=== PATIENT | female | born 1955 | race African-American/Black ===

== ENCOUNTER → 2018-07-02 | Outpatient (CLI) | payer OTHER | LOC: MHCPAIN 12:50 | DX: G89.29 Other chronic pain (principal); M47.817 Spondylosis without myelopathy or radiculopathy, lumbosacral region; M54.16 Radiculopathy, lumbar region; M53.3 Sacrococcygeal disorders, not elsewhere classified | CPT/HCPCS: G0463 ==

== ENCOUNTER → 2018-07-10 | Outpatient (CLI) | payer OTHER | LOC: MHCPAIN 09:38 | DX: G57.11 Meralgia paresthetica, right lower limb (principal) | CPT/HCPCS: J1040 ==

== ENCOUNTER → 2018-08-07 | Outpatient (CLI) | payer OTHER | LOC: MHCPAIN 09:21 | DX: G89.29 Other chronic pain (principal); M47.817 Spondylosis without myelopathy or radiculopathy, lumbosacral region; M53.3 Sacrococcygeal disorders, not elsewhere classified | CPT/HCPCS: G0463 ==

== ENCOUNTER → 2018-09-06 | Outpatient (RCR) | payer OTHER | END | disposition home or self-care (01) | LOC: WSC → WSPT 07-03 10:45 → WSC 07-05 13:45 → WSPT 07-31 11:30 → WSC 08-21 15:45 | DX: M47.816 Spondylosis without myelopathy or radiculopathy, lumbar region (principal); M48.061 Spinal stenosis, lumbar region without neurogenic claudication; G89.29 Other chronic pain ==

== ENCOUNTER 2018-09-27 11:30 | Outpatient (RCR) | payer OTHER | END 2018-10-03 10:15 | disposition home or self-care (01) | LOC: WSC 11:30 | DX: G89.29 Other chronic pain (principal); M54.5 Low back pain ==

== ENCOUNTER → 2018-10-30 | Outpatient (CLI) | payer OTHER | LOC: MHCPAIN 09:42 | DX: G89.29 Other chronic pain (principal); M47.817 Spondylosis without myelopathy or radiculopathy, lumbosacral region; M53.3 Sacrococcygeal disorders, not elsewhere classified | CPT/HCPCS: G0463 ==

== ENCOUNTER 2019-12-04 08:09 | Day surgery (SDC) | payer OTHER ==
[2019-12-04] VITALS (11 sets, daily range): BP systolic 105–137; BP diastolic 58–87; PULSE 16–98; TEMP 97.6
[~2019-12-04] VITALS: Ht 170.2 cm; Wt 164.7 kg
[2019-12-04] MEDS ORDERED: COUMADIN 77.5 MG/TAB PO (08:54)
[2019-12-04] MEDS ORDERED: MICARDIS80 MG PO (08:55)
[2019-12-04] MEDS ORDERED: NORVASC 10MG10 MG PO (08:56)
[2019-12-04] MEDS ORDERED: LIPITOR 10MG10 MG PO (08:56)
[2019-12-04] MEDS ORDERED: HCTZ 25MG TAB25 MG PO (08:56)
[2019-12-04] MEDS ORDERED: FLONASEALLERGY NS (08:57)
[2019-12-04] MEDS ORDERED: ZYRTEC 10MG10 MG PO (08:57)
[2019-12-04] MEDS ORDERED: MASON NATURAL2000 IU PO (08:57)
[2019-12-04] MEDS ORDERED: CYMBALTA 30MG30 MG PO (08:58)
[2019-12-04] MEDS ORDERED: TYLENOL 500MG500 MG PO (08:58)
[2019-12-04] MEDS ORDERED: SALONPAS1 EACH TP (08:58)
[2019-12-04] MEDS ORDERED: ROBAXIN 75750 MG/TAB PO (08:58)
[2019-12-04 08:59] LABS: CALCIUM 9.1 mg/dL (8.4-10.2); CREATININE, serum 0.81 (0.52-1.25); HEMOGLOBIN 11.5 g/dl (12.5-16.0); MEAN CELL VOLUME 93 fl (80.0-100.0); MEAN CORPUSCULAR HEMOGLOBIN 30 pg (27.0-31.0); MEAN CORPUSCULAR HGB CONC 32 g/dl (33.0-37.0); PLATELET COUNT 250 K/mm3 (130-400); POTASSIUM 3.6 mmol/L (3.4-5.0); RED BLOOD COUNT 3.89 M/mm3 (4.10-5.30); REDCELL DISTRIBUTION WIDTH-CV 13.6 % (11.5-14.5)
[2019-12-04] MEDS ORDERED: COLACE 100100 MG/CAP PO (08:59)
[2019-12-04 09:02] LABS: HEMATOCRIT 36.3 % (37.0-47.0)
[2019-12-04 09:03] LABS: INR 1.5 (0.8-3.0); PROTHROMBIN TIME 16.4 SECONDS (9.7-12.8)
[2019-12-04 09:06] LABS: PARTIAL THROMBOPLASTIN TIME 34.3 SECONDS (26.0-37.0)
--- NOTE | 2019-12-04 10:03 | NUR ---
SEE MERGE DOCUMENTATION FOR MEDICATION ADMINISTRATION AND INTRA/POST PROCEDURE SEDATION ASSESSMENTS.
--- NOTE | 2019-12-04 11:45 | NUR ---
Rt maddison venous puncture site remains soft to palpation, dressing C/D/I. Pt remains free of complaints, denies needs at this time. She has spoken by phone with her . Call light in reach.
--- NOTE | 2019-12-04 13:05 | NUR ---
Additional 3ml released from rt TR band. Pt tolerating well, no c/o numbness or tingeling, pains. Assisted up to toilet with steady gait. Changing positions slowly to avoid spasming of back. Now sitting on edge of bed eating lunch.
--- NOTE | 2019-12-04 14:40 | NUR ---
Pt assisted out of EU by wheelchair, and into 's car. DC instructions reviewed and pt and express understanding. Bandaid, 2x2 and coban wrap in place to rt wrist- site remains soft to palpation, dressing C/D/I. Dressing to rt groin was changed due to small amount of blood on gauze. Rt groin soft to palpation, 2x2 placed and covered with tegaderm. INT DC'd with catheter intact. Pt ate meal tray prior to discharge.
== END 2019-12-04 14:40 | disposition home or self-care (01) ==
LOC: COL.CAR 08:09
PROVIDERS: Internal Medicine Cardiovascular Disease
DX: R07.89 Other chest pain (principal); I10 Essential (primary) hypertension; E78.5 Hyperlipidemia, unspecified; I34.0 Nonrheumatic mitral (valve) insufficiency; R94.39 Abnormal result of other cardiovascular function study; Z86.718 Personal history of other venous thrombosis and embolism; Z90.710 Acquired absence of both cervix and uterus; Z96.652 Presence of left artificial knee joint; Z79.82 Long term (current) use of aspirin; Z79.51 Long term (current) use of inhaled steroids; Z79.01 Long term (current) use of anticoagulants; Z82.3 Family history of stroke; Z82.5 Family history of asthma and other chronic lower respiratory diseases; Z83.3 Family history of diabetes mellitus
CPT/HCPCS: C1769; C1894; J1644; J2250; J3010

== ENCOUNTER 2021-01-28 09:00 | Outpatient (RCR) | payer MEDICARE, OTHER ==
[~2021-01-28 09:00] MED LIST: COLACE 100100 MG/CAP PO; COUMADIN 77.5 MG/TAB PO; CYMBALTA 30MG30 MG PO; FLONASEALLERGY NS; HCTZ 25MG TAB25 MG PO; LIPITOR 10MG10 MG PO; MASON NATURAL2000 IU PO; MICARDIS80 MG PO; NORVASC 10MG10 MG PO; ROBAXIN 75750 MG/TAB PO; SALONPAS1 EACH TP; TYLENOL 500MG500 MG PO; ZYRTEC 10MG10 MG PO
== END 2021-02-01 | disposition home or self-care (01) ==
LOC: WSPT
DX: M54.5 Low back pain (principal)

== ENCOUNTER 2021-02-04 09:00 | Outpatient (RCR) | payer MEDICARE, OTHER | END 2021-05-03 | disposition home or self-care (01) | LOC: WSPT | DX: M54.50 Low back pain, unspecified (principal) ==

== ENCOUNTER → 2023-01-12 | Outpatient (RCR) | payer MEDICARE, OTHER | END | disposition home or self-care (01) | LOC: WSPT | DX: M25.552 Pain in left hip (principal); M54.50 Low back pain, unspecified ==

== ENCOUNTER 2023-02-09 09:45 | Outpatient (RCR) | payer MEDICARE, OTHER | END 2023-02-11 | disposition home or self-care (01) | LOC: WSPT | DX: M54.50 Low back pain, unspecified (principal); M25.552 Pain in left hip ==

== ENCOUNTER 2023-02-16 09:45 | Outpatient (RCR) | payer MEDICARE, OTHER | END 2023-02-24 14:50 | disposition home or self-care (01) | LOC: WSPT 09:45 | DX: M54.50 Low back pain, unspecified (principal); M25.552 Pain in left hip ==